=== PATIENT | female | born 1950 | race Caucasian/White ===

== ENCOUNTER → 2017-01-24 | Outpatient (CLI) | payer OTHER | END | disposition home or self-care (01) | LOC: CFH 13:38 | PROVIDERS: ATTEND Nurse Practitioner Family | DX: Z13.820 Encounter for screening for osteoporosis (principal); Z12.2 Encounter for screening for malignant neoplasm of respiratory organs; M85.80 Other specified disorders of bone density and structure, unspecified site; M81.0 Age-related osteoporosis without current pathological fracture; Z87.891 Personal history of nicotine dependence | CPT/HCPCS: 77080; G0297 ==

== ENCOUNTER → 2017-02-17 | Outpatient (CLI) | payer OTHER | END | disposition home or self-care (01) | LOC: CFH 10:07 | PROVIDERS: ATTEND Internal Medicine Critical Care Medicine | DX: I08.0 Rheumatic disorders of both mitral and aortic valves (principal); J43.9 Emphysema, unspecified; I10 Essential (primary) hypertension; Z87.891 Personal history of nicotine dependence | CPT/HCPCS: 93306 ==

== ENCOUNTER → 2018-08-22 | Outpatient (CLI) | payer OTHER | END | disposition home or self-care (01) | LOC: CFH 14:58 | PROVIDERS: ATTEND Nurse Practitioner Family | DX: R10.10 Upper abdominal pain, unspecified (principal) | CPT/HCPCS: 76700 ==

== ENCOUNTER 2019-05-27 13:06 | Outpatient (CLI) | payer MEDICARE ==
[2019-05-27] MEDS ORDERED: GADOTERATE 10 MMOL/20 ML VIAL ONE (13:28)
== END 2019-05-27 23:59 | disposition home or self-care (01) ==
LOC: CFH 13:06
PROVIDERS: ATTEND Genetic Counselor, MS
DX: G45.3 Amaurosis fugax (principal)
CPT/HCPCS: 70553; A9575